=== PATIENT | male | born 1960 | race Caucasian/White ===

== ENCOUNTER 2017-05-15 06:36 | Inpatient (IN) | payer SELFPAY ==
[2017-05-15 06:59] LABS: ADD MAN DIFF? NO
[2017-05-15] MEDS: IPRATRPIUM/ALBUTEROL 0.5/2.5MG 3 ML NEBU. NEB ×4 (07:04→20:10)
[2017-05-15] MEDS: ALBUTEROL SULFATE 2.5 MG/3 ML NEBU. CONT NEB (07:04)
[2017-05-15 07:08] LABS: BASE EXCESS COOX -2 mmol/L (-3-3); BASO % 0 % (0-3); CARBON MONOXIDE 1.1 % (0.0-1.9); EOS # 0.1 x10^3/uL (0.0-0.7); EOS % 1 % (0-3); HCO3 COOX 23 mmol/L (21-28); HEMATOCRIT 47.3 % (39.0-53.0); HEMOGLOBIN 15.8 g/dL (13.0-17.5); LYMPH # 3.2 x10^3/uL (1.0-4.8); LYMPH % 29 % (24-48); MEAN CORPUSCULAR HEMOGLOBIN 31 pg (25-35); MEAN CORPUSCULAR HGB CONC 34 g/dL (31-37); MEAN CORPUSCULAR VOLUME 93 fL (79-100); METHEMOGLOBIN 0.5 % (0.0-1.9); MONO # 0.8 x10^3/uL (0.0-1.1); MONO % 8 % (0-9); NEUT # 7.1 x10^3uL (1.8-7.7); NEUT % 62 % (31-73); OXYHEMOGLOBIN 90.3 %; PCO2 COOX 39 mmHg (35-46); PH COOX 7.38 (7.35-7.45); PLATELET COUNT 332 x10^3/uL (140-400); PO2 COOX 63 mmHg (75-108); RED BLOOD COUNT 5.06 x10^6/uL (4.30-5.70); RED CELL DISTRIBUTION WIDTH 12.5 % (11.5-14.5); SAT O2 COOX 92 % (92-99); TOTAL HEMOGLOBIN 16.4 g/dL; WHITE BLOOD COUNT 11.3 x10^3/uL (4.0-11.0)
[2017-05-15 07:17] LABS: ANION GAP 12 (6-14); CALCIUM 9.3 mg/dL (8.5-10.1); CARBON DIOXIDE 23 mmol/L (21-32); CHLORIDE 105 mmol/L (98-107); CREATININE 0.7 mg/dL (0.7-1.3); GFR 116.2; GLUCOSE 148 mg/dL (70-99); POTASSIUM 3.9 mmol/L (3.5-5.1); SODIUM 140 mmol/L (136-145)
[2017-05-15 07:19] LABS: ETHANOL < 10 mg/dL (0-10)
[2017-05-15 07:19] LABS: BLOOD UREA NITROGEN 13 mg/dL (8-26)
[2017-05-15 07:23] LABS: ALBUMIN 3.5 g/dL (3.4-5.0); ALK PHOS 115 U/L (46-116); ALT (SGPT) 35 U/L (16-63); AST (SGOT) 26 U/L (15-37); DIRECT BILIRUBIN 0.1 mg/dL (0.0-0.2); LIPASE 95 U/L (73-393); MAGNESIUM 2.3 mg/dL (1.8-2.4); TOTAL BILIRUBIN 0.3 mg/dL (0.2-1.0); TOTAL PROTEIN 7.8 g/dL (6.4-8.2)
[2017-05-15 07:27] LABS: INFLUENZA A PATIENT NEGATIVE (NEGATIVE); INFLUENZA B PATIENT NEGATIVE (NEGATIVE); OBC FLU VALID
[2017-05-15] MEDS ORDERED: CONTRAST GIVEN MC (07:30)
[2017-05-15 07:31] LABS: AMMONIA 19 mcmol/L (11-34); TROPONINI < 0.017 ng/mL (0.000-0.055)
[2017-05-15 07:32] LABS: NT-PRO BNP 97 pg/mL (0-124); THYROID STIM HORMONE (TSH) 2.435 uIU/mL (0.358-3.74)
[2017-05-15 07:35] LABS: D-DIMER 5.06 ug/mlFEU (0.00-0.50)
[2017-05-15] MEDS ORDERED: HALOPERIDOL LACTATE 5 MG/ML VIAL. (07:36)
[2017-05-15] MEDS: HALOPERIDOL LACTATE 5 MG/ML VIAL. IVP ×2 (07:41→08:05)
[2017-05-15 07:42] LABS: LACTIC ACID 4.8 mmol/L (0.4-2.0)
[2017-05-15] MEDS: IV NORMAL SALINE 1000ML BAG 1,000 ML IV ×4 (07:42→23:42)
[2017-05-15] MEDS: methylPREDNISolone SOD SUCC PF 125 MG/2 ML VIAL. IV (07:42)
[2017-05-15] MEDS: 0.9 % SODIUM CHLORIDE 10 ML DISP.SYRIN. IV (07:43)
[2017-05-15] MEDS ORDERED: ACETAMINOPHEN 325 MG TABLET. PO (07:45)
[2017-05-15] MEDS ORDERED: ONDANSETRON PF 4 MG/2 ML VIAL. IV ×2 (07:45→09:00)
[2017-05-15] MEDS ORDERED: diphenhydrAMINE 50 MG/ML VIAL IVP (07:45)
[2017-05-15] MEDS: MULTIVIT INFUSN,ADULT 4,VIT K 10 ML, THIAMINE 100 MG, FOLIC ACID 1 MG in IV NORMAL SALI... IV (07:53)
[2017-05-15] MEDS: CIPROFLOXACIN 400MG PREMIX 200 ML IV (07:59)
[2017-05-15] MEDS ORDERED: IPRATRPIUM/ALBUTEROL 0.5/2.5MG 3 ML NEBU. NEB (08:00)
[2017-05-15] MEDS ORDERED: MORPHINE SULFATE 2 MG/ML DISP.SYRIN. IV (09:00)
[2017-05-15] MEDS ORDERED: ALBUTEROL SULFATE 2.5 MG/3 ML NEBU. NEB (09:00)
[2017-05-15] MEDS ORDERED: traMADol 50 MG TABLET PO (09:00)
[2017-05-15] MEDS: ETOMIDATE 20 MG/10 ML VIAL. IV (09:16)
[2017-05-15] MEDS: SUCCINYLCHOLINE 200 MG/10 ML VIAL. IV (09:16)
[2017-05-15] MEDS ORDERED: PROPOFOL 50 ML IV ×2 (09:18→09:54)
[2017-05-15] MEDS: PROPOFOL 100 ML IV ×4 (09:22→23:08)
[2017-05-15] MEDS: IOHEXOL 300 MG/ML 100ML VIAL. IV (10:03)
[2017-05-15 11:18] LABS: LACTIC ACID 1.7 mmol/L (0.4-2.0)
[2017-05-15 11:27] LABS: TROPONINI 0.191 ng/mL (0.000-0.055)
[2017-05-15] MEDS: POTASSIUM CL 20MEQ D5-0.9%NACL 1,000 ML IV (11:47)
[2017-05-15 14:10] LABS: TROPONINI 0.293 ng/mL (0.000-0.055)
[2017-05-15 14:24] LABS: CKMB MASS 3.2 ng/mL (0.0-3.6); CREATINE KINASE 107 U/L (39-308)
[2017-05-15 16:01] LABS: BARBITURATES NEG (NEG); BENZODIAZEPINES NEG (NEG); CANNABINOIDS NEG (NEG); COCAINE NEG (NEG); METHADONE NEG (NEG); OPIATES NEG (NEG); PHENCYCLIDINE NEG (NEG)
[2017-05-15 16:03] LABS: AMPHETAMINE/METHAMPHETAMINE NEG (NEG); ETHANOL, URINE NEG (NEG)
[2017-05-15] MEDS: GADOBUTROL 7.5 MMOL/7.5 ML VIAL IV (16:30)
[2017-05-15] MEDS: ENOXAPARIN 40 MG/0.4 ML SYRINGE. SQ (17:10)
[2017-05-15] MEDS: ASPIRIN 300 MG SUPP.RECT PR (17:10)
[2017-05-15 19:14] LABS: MRSA BY PCR Negative (Negative)
[2017-05-15] MEDS: FAMOTIDINE 20 MG/2 ML VIAL IVP (20:41)
[2017-05-15] MEDS ORDERED: CIPROFLOXACIN 400MG PREMIX 200 ML IV (21:00)
[2017-05-16] MEDS: POTASSIUM CL 20MEQ D5-0.9%NACL 1,000 ML IV ×2 (03:03→13:40)
[2017-05-16] MEDS: PROPOFOL 100 ML IV ×3 (03:13→21:04)
[2017-05-16 06:22] LABS: ADD MAN DIFF? NO
[2017-05-16 06:31] LABS: BASO # 0.1 x10^3/uL (0.0-0.2); BASO % 1 % (0-3); EOS % 0 % (0-3); HEMATOCRIT 40.8 % (39.0-53.0); HEMOGLOBIN 13.7 g/dL (13.0-17.5); LYMPH # 2.8 x10^3/uL (1.0-4.8); LYMPH % 21 % (24-48); MEAN CORPUSCULAR HEMOGLOBIN 31 pg (25-35); MEAN CORPUSCULAR HGB CONC 34 g/dL (31-37); MEAN CORPUSCULAR VOLUME 92 fL (79-100); MONO # 1.6 x10^3/uL (0.0-1.1); MONO % 12 % (0-9); NEUT # 8.8 x10^3uL (1.8-7.7); NEUT % 66 % (31-73); PLATELET COUNT 314 x10^3/uL (140-400); RED BLOOD COUNT 4.47 x10^6/uL (4.30-5.70); RED CELL DISTRIBUTION WIDTH 12.9 % (11.5-14.5); WHITE BLOOD COUNT 13.4 x10^3/uL (4.0-11.0)
[2017-05-16 06:42] LABS: ANION GAP 8 (6-14); CARBON DIOXIDE 25 mmol/L (21-32); CHLORIDE 112 mmol/L (98-107); CREATININE 0.5 mg/dL (0.7-1.3); GFR 171.4; GLUCOSE 119 mg/dL (70-99); POTASSIUM 3.5 mmol/L (3.5-5.1); SODIUM 145 mmol/L (136-145)
[2017-05-16 06:43] LABS: BLOOD UREA NITROGEN 7 mg/dL (8-26)
[2017-05-16 06:47] LABS: CHOLESTEROL 193 mg/dL (0-200); HDLC 28 mg/dL (40-60); LDLC 125 mg/dL (0-100); NON-HDL CHOLESTEROL 165 mg/dL (0-129); TRIGLYCERIDES 199 mg/dL (0-150); VLDLC 40 mg/dL (0-40)
[2017-05-16 06:49] LABS: CHOLESTEROL/HDL RATIO 6.9
[2017-05-16] MEDS: ASPIRIN CHEWABLE 81 MG TABLET. PO (08:00)
[2017-05-16] MEDS: IPRATRPIUM/ALBUTEROL 0.5/2.5MG 3 ML NEBU. NEB ×4 (08:19→19:21)
[2017-05-16 08:27] LABS: BASE EXCESS ABG -2 mmol/L (-3-3); HCO3 ABG 21 mmol/L (21-28); PCO2 ABG 32 mmHg (35-46); PH ABG 7.44 (7.35-7.45); PO2 ABG 88 mmHg (75-108); SAT O2 ABG 97 % (92-99)
[2017-05-16 08:52] LABS: FIO2 ABG 40
[2017-05-16] MEDS: MULTIVIT INFUSN,ADULT 4,VIT K 10 ML, THIAMINE 100 MG, FOLIC ACID 1 MG in IV DEXTROSE 5 ... IV (09:48)
[2017-05-16 09:50] LABS: TROPONINI 0.136 ng/mL (0.000-0.055)
[2017-05-16 12:51] LABS: BASE EXCESS ABG -2 mmol/L (-3-3); HCO3 ABG 22 mmol/L (21-28); PCO2 ABG 36 mmHg (35-46); PH ABG 7.41 (7.35-7.45); PO2 ABG 74 mmHg (75-108); SAT O2 ABG 96 % (92-99)
[2017-05-16 12:53] LABS: FIO2 ABG 40
[2017-05-16] MEDS: ENOXAPARIN 40 MG/0.4 ML SYRINGE. SQ (16:00)
[2017-05-16] MEDS: FAMOTIDINE 20 MG/2 ML VIAL IVP (21:04)
[2017-05-16] MEDS ORDERED: MIDAZOLAM 100MG/100ML PREMIX 100 ML IV (22:15)
[2017-05-17] MEDS: PROPOFOL 100 ML IV ×5 (01:18→22:57)
[2017-05-17] MEDS: POTASSIUM CL 20MEQ D5-0.9%NACL 1,000 ML IV ×2 (01:19→17:44)
[2017-05-17 06:17] LABS: ADD MAN DIFF? NO
[2017-05-17 06:25] LABS: BASO % 0 % (0-3); EOS # 0.1 x10^3/uL (0.0-0.7); EOS % 1 % (0-3); HEMATOCRIT 40.7 % (39.0-53.0); HEMOGLOBIN 13.3 g/dL (13.0-17.5); LYMPH # 3.1 x10^3/uL (1.0-4.8); LYMPH % 33 % (24-48); MEAN CORPUSCULAR HEMOGLOBIN 31 pg (25-35); MEAN CORPUSCULAR HGB CONC 33 g/dL (31-37); MEAN CORPUSCULAR VOLUME 95 fL (79-100); MONO # 1.3 x10^3/uL (0.0-1.1); MONO % 13 % (0-9); NEUT # 4.9 x10^3uL (1.8-7.7); NEUT % 52 % (31-73); PLATELET COUNT 336 x10^3/uL (140-400); RED BLOOD COUNT 4.31 x10^6/uL (4.30-5.70); WHITE BLOOD COUNT 9.4 x10^3/uL (4.0-11.0)
[2017-05-17 06:35] LABS: ANION GAP 7 (6-14); BLOOD UREA NITROGEN 7 mg/dL (8-26); CALCIUM 7.8 mg/dL (8.5-10.1); CARBON DIOXIDE 27 mmol/L (21-32); CHLORIDE 109 mmol/L (98-107); CREATININE 0.4 mg/dL (0.7-1.3); GFR 221.7; GLUCOSE 110 mg/dL (70-99); POTASSIUM 3.8 mmol/L (3.5-5.1); SODIUM 143 mmol/L (136-145)
[2017-05-17] MEDS: IPRATRPIUM/ALBUTEROL 0.5/2.5MG 3 ML NEBU. NEB ×4 (07:37→20:26)
[2017-05-17 08:43] LABS: BASE EXCESS ABG -1 mmol/L (-3-3); HCO3 ABG 25 mmol/L (21-28); PCO2 ABG 45 mmHg (35-46); PH ABG 7.36 (7.35-7.45); PO2 ABG 72 mmHg (75-108); SAT O2 ABG 95 % (92-99)
[2017-05-17 08:45] LABS: FIO2 ABG 40
[2017-05-17] MEDS: ASPIRIN CHEWABLE 81 MG TABLET. PO (09:39)
[2017-05-17] MEDS: MULTIVIT INFUSN,ADULT 4,VIT K 10 ML, THIAMINE 100 MG, FOLIC ACID 1 MG in IV DEXTROSE 5 ... IV (09:57)
[2017-05-17] MEDS: ENOXAPARIN 40 MG/0.4 ML SYRINGE. SQ (16:20)
[2017-05-17] MEDS: FAMOTIDINE 20 MG/2 ML VIAL IVP (21:02)
[2017-05-18] MEDS: PROPOFOL 100 ML IV ×3 (05:05→21:13)
[2017-05-18 05:52] LABS: ADD MAN DIFF? NO
[2017-05-18 05:57] LABS: BASO % 0 % (0-3); EOS # 0.2 x10^3/uL (0.0-0.7); EOS % 2 % (0-3); HEMATOCRIT 41.4 % (39.0-53.0); LYMPH # 2.7 x10^3/uL (1.0-4.8); LYMPH % 28 % (24-48); MEAN CORPUSCULAR HEMOGLOBIN 32 pg (25-35); MEAN CORPUSCULAR HGB CONC 34 g/dL (31-37); MEAN CORPUSCULAR VOLUME 93 fL (79-100); MONO # 1.1 x10^3/uL (0.0-1.1); MONO % 12 % (0-9); NEUT # 5.7 x10^3uL (1.8-7.7); NEUT % 58 % (31-73); PLATELET COUNT 359 x10^3/uL (140-400); RED BLOOD COUNT 4.43 x10^6/uL (4.30-5.70); RED CELL DISTRIBUTION WIDTH 12.7 % (11.5-14.5); WHITE BLOOD COUNT 9.7 x10^3/uL (4.0-11.0)
[2017-05-18 06:30] LABS: ANION GAP 6 (6-14); BLOOD UREA NITROGEN 9 mg/dL (8-26); CALCIUM 8.3 mg/dL (8.5-10.1); CARBON DIOXIDE 27 mmol/L (21-32); CHLORIDE 108 mmol/L (98-107); CREATININE 0.4 mg/dL (0.7-1.3); GFR 221.7; GLUCOSE 121 mg/dL (70-99); SODIUM 141 mmol/L (136-145)
[2017-05-18] MEDS: IPRATRPIUM/ALBUTEROL 0.5/2.5MG 3 ML NEBU. NEB ×4 (07:49→20:39)
[2017-05-18] MEDS: ASPIRIN CHEWABLE 81 MG TABLET. PO (07:59)
[2017-05-18 08:31] LABS: BASE EXCESS ABG 2 mmol/L (-3-3); HCO3 ABG 27 mmol/L (21-28); PCO2 ABG 44 mmHg (35-46); PH ABG 7.41 (7.35-7.45); PO2 ABG 83 mmHg (75-108); SAT O2 ABG 97 % (92-99)
[2017-05-18] MEDS: MULTIVIT INFUSN,ADULT 4,VIT K 10 ML, THIAMINE 100 MG, FOLIC ACID 1 MG in IV DEXTROSE 5 ... IV (08:32)
[2017-05-18 08:33] LABS: FIO2 ABG 40
[2017-05-18] MEDS: FUROSEMIDE 20 MG/2 ML VIAL. IVP (10:11)
[2017-05-18] MEDS: ENOXAPARIN 40 MG/0.4 ML SYRINGE. SQ (15:47)
[2017-05-18] MEDS: FAMOTIDINE 20 MG/2 ML VIAL IVP (21:13)
[2017-05-19] MEDS: PROPOFOL 100 ML IV ×3 (00:50→10:00)
[2017-05-19 03:41] LABS: ADD MAN DIFF? NO
[2017-05-19 03:43] LABS: BASO % 1 % (0-3); EOS # 0.3 x10^3/uL (0.0-0.7); EOS % 3 % (0-3); HEMATOCRIT 41.2 % (39.0-53.0); HEMOGLOBIN 13.9 g/dL (13.0-17.5); LYMPH # 2.4 x10^3/uL (1.0-4.8); LYMPH % 27 % (24-48); MEAN CORPUSCULAR HEMOGLOBIN 31 pg (25-35); MEAN CORPUSCULAR HGB CONC 34 g/dL (31-37); MEAN CORPUSCULAR VOLUME 93 fL (79-100); MONO % 11 % (0-9); NEUT % 58 % (31-73); PLATELET COUNT 365 x10^3/uL (140-400); RED BLOOD COUNT 4.42 x10^6/uL (4.30-5.70); RED CELL DISTRIBUTION WIDTH 12.9 % (11.5-14.5); WHITE BLOOD COUNT 8.7 x10^3/uL (4.0-11.0)
[2017-05-19 04:24] LABS: ANION GAP 6 (6-14); BLOOD UREA NITROGEN 15 mg/dL (8-26); CALCIUM 8.8 mg/dL (8.5-10.1); CARBON DIOXIDE 30 mmol/L (21-32); CHLORIDE 103 mmol/L (98-107); CREATININE 0.5 mg/dL (0.7-1.3); GFR 171.4; GLUCOSE 125 mg/dL (70-99); POTASSIUM 4.1 mmol/L (3.5-5.1); SODIUM 139 mmol/L (136-145)
[2017-05-19] MEDS: DOCUSATE SODIUM 100 MG CAPSULE. PO (07:55)
[2017-05-19] MEDS: FAMOTIDINE 20 MG/2 ML VIAL IVP (07:55)
[2017-05-19] MEDS: ASPIRIN CHEWABLE 81 MG TABLET. PO (07:55)
[2017-05-19] MEDS: ACETAMINOPHEN 325 MG TABLET. PO (07:56)
[2017-05-19] MEDS: IPRATRPIUM/ALBUTEROL 0.5/2.5MG 3 ML NEBU. NEB ×4 (08:21→19:49)
[2017-05-19] MEDS: DOCUSATE 100 MG/10 ML SOLUTION. PO (08:47)
[2017-05-19] MEDS: guaiFENesin ORAL 200 MG/10 ML LIQUID. PO ×3 (08:49→18:00)
[2017-05-19 08:50] LABS: BASE EXCESS ABG 5 mmol/L (-3-3); HCO3 ABG 31 mmol/L (21-28); PCO2 ABG 54 mmHg (35-46); PH ABG 7.38 (7.35-7.45); PO2 ABG 82 mmHg (75-108); SAT O2 ABG 96 % (92-99)
[2017-05-19 08:52] LABS: FIO2 ABG 40
[2017-05-19] MEDS: MULTIVIT INFUSN,ADULT 4,VIT K 10 ML, THIAMINE 100 MG, FOLIC ACID 1 MG in IV DEXTROSE 5 ... IV (09:58)
[2017-05-19 12:27] LABS: BASE EXCESS ABG 5 mmol/L (-3-3); HCO3 ABG 30 mmol/L (21-28); PCO2 ABG 45 mmHg (35-46); PH ABG 7.44 (7.35-7.45); PO2 ABG 79 mmHg (75-108); SAT O2 ABG 96 % (92-99)
[2017-05-19 12:29] LABS: FIO2 ABG 40
[2017-05-19] MEDS ORDERED: LORazepam 1 MG TABLET PO (16:00)
[2017-05-19] MEDS: HALOPERIDOL LACTATE 5 MG/ML VIAL. IVP (16:10)
[2017-05-19] MEDS: ENOXAPARIN 40 MG/0.4 ML SYRINGE. SQ (16:18)
[2017-05-19] MEDS: hydrALAZINE 20 MG/ML VIAL. IVP (16:19)
[2017-05-19] MEDS: POTASSIUM CL 20MEQ D5-0.45NACL 1,000 ML IV (20:04)
[2017-05-20 05:03] LABS: ADD MAN DIFF? NO
[2017-05-20] MEDS: hydrALAZINE 20 MG/ML VIAL. IVP ×2 (05:05→19:12)
[2017-05-20 05:14] LABS: BASO % 0 % (0-3); EOS # 0.3 x10^3/uL (0.0-0.7); EOS % 4 % (0-3); HEMATOCRIT 41.4 % (39.0-53.0); HEMOGLOBIN 13.9 g/dL (13.0-17.5); LYMPH # 2.3 x10^3/uL (1.0-4.8); LYMPH % 31 % (24-48); MEAN CORPUSCULAR HEMOGLOBIN 31 pg (25-35); MEAN CORPUSCULAR HGB CONC 34 g/dL (31-37); MEAN CORPUSCULAR VOLUME 93 fL (79-100); MONO # 0.9 x10^3/uL (0.0-1.1); MONO % 12 % (0-9); NEUT # 4.1 x10^3uL (1.8-7.7); NEUT % 53 % (31-73); PLATELET COUNT 400 x10^3/uL (140-400); RED BLOOD COUNT 4.47 x10^6/uL (4.30-5.70); RED CELL DISTRIBUTION WIDTH 12.8 % (11.5-14.5); WHITE BLOOD COUNT 7.7 x10^3/uL (4.0-11.0)
[2017-05-20 05:39] LABS: ANION GAP 6 (6-14); BLOOD UREA NITROGEN 12 mg/dL (8-26); CARBON DIOXIDE 28 mmol/L (21-32); CHLORIDE 105 mmol/L (98-107); CREATININE 0.4 mg/dL (0.7-1.3); GFR 221.7; GLUCOSE 119 mg/dL (70-99); SODIUM 139 mmol/L (136-145)
[2017-05-20] MEDS: guaiFENesin ORAL 200 MG/10 ML LIQUID. PO ×4 (05:58→18:00)
[2017-05-20] MEDS: POTASSIUM CL 20MEQ D5-0.45NACL 1,000 ML IV ×3 (06:27→19:58)
[2017-05-20] MEDS: IPRATRPIUM/ALBUTEROL 0.5/2.5MG 3 ML NEBU. NEB ×4 (08:00→19:30)
[2017-05-20] MEDS: ASPIRIN CHEWABLE 81 MG TABLET. PO (08:24)
[2017-05-20] MEDS: MULTIVIT INFUSN,ADULT 4,VIT K 10 ML, THIAMINE 100 MG, FOLIC ACID 1 MG in IV DEXTROSE 5 ... IV (09:10)
[2017-05-20] MEDS: HALOPERIDOL LACTATE 5 MG/ML VIAL. IVP (16:21)
[2017-05-20] MEDS: ENOXAPARIN 40 MG/0.4 ML SYRINGE. SQ (17:07)
[2017-05-20] MEDS: LACTOBACILLUS RHAMNOSUS GG 1 CAPSULE. PO (21:00)
[2017-05-20] MEDS: FAMOTIDINE 20 MG/2 ML VIAL IVP (21:42)
[2017-05-21 03:47] LABS: ADD MAN DIFF? NO
[2017-05-21 03:53] LABS: BASO # 0.1 x10^3/uL (0.0-0.2); BASO % 1 % (0-3); EOS # 0.2 x10^3/uL (0.0-0.7); EOS % 3 % (0-3); HEMATOCRIT 43.1 % (39.0-53.0); HEMOGLOBIN 14.6 g/dL (13.0-17.5); LYMPH # 2.5 x10^3/uL (1.0-4.8); LYMPH % 29 % (24-48); MEAN CORPUSCULAR HEMOGLOBIN 32 pg (25-35); MEAN CORPUSCULAR HGB CONC 34 g/dL (31-37); MEAN CORPUSCULAR VOLUME 93 fL (79-100); MONO # 0.9 x10^3/uL (0.0-1.1); MONO % 11 % (0-9); NEUT # 5.1 x10^3uL (1.8-7.7); NEUT % 58 % (31-73); PLATELET COUNT 425 x10^3/uL (140-400); RED BLOOD COUNT 4.65 x10^6/uL (4.30-5.70); RED CELL DISTRIBUTION WIDTH 13.1 % (11.5-14.5); WHITE BLOOD COUNT 8.8 x10^3/uL (4.0-11.0)
[2017-05-21 04:12] LABS: ALBUMIN 2.9 g/dL (3.4-5.0); ALBUMIN/GLOBULIN RATIO 0.7 (1.0-1.7); ALK PHOS 136 U/L (46-116); ALT (SGPT) 32 U/L (16-63); ANION GAP 9 (6-14); AST (SGOT) 22 U/L (15-37); BLOOD UREA NITROGEN 14 mg/dL (8-26); BUN/CREATININE RATIO 28 (6-20); CALCIUM 9.1 mg/dL (8.5-10.1); CARBON DIOXIDE 25 mmol/L (21-32); CHLORIDE 105 mmol/L (98-107); CREATININE 0.5 mg/dL (0.7-1.3); GFR 171.4; GLUCOSE 121 mg/dL (70-99); MAGNESIUM 2.3 mg/dL (1.8-2.4); POTASSIUM 3.9 mmol/L (3.5-5.1); SODIUM 139 mmol/L (136-145); TOTAL BILIRUBIN 0.5 mg/dL (0.2-1.0); TOTAL PROTEIN 7.1 g/dL (6.4-8.2)
[2017-05-21] MEDS: guaiFENesin ORAL 200 MG/10 ML LIQUID. PO ×4 (04:21→17:57)
[2017-05-21] MEDS: POTASSIUM CL 20MEQ D5-0.45NACL 1,000 ML IV ×2 (04:22→11:58)
[2017-05-21] MEDS: IPRATRPIUM/ALBUTEROL 0.5/2.5MG 3 ML NEBU. NEB ×4 (07:44→19:47)
[2017-05-21] MEDS: MULTIVIT INFUSN,ADULT 4,VIT K 10 ML, THIAMINE 100 MG, FOLIC ACID 1 MG in IV DEXTROSE 5 ... IV (08:38)
[2017-05-21] MEDS: LACTOBACILLUS RHAMNOSUS GG 1 CAPSULE. PO ×2 (09:11→20:34)
[2017-05-21] MEDS: ASPIRIN CHEWABLE 81 MG TABLET. PO (09:11)
[2017-05-21] MEDS ORDERED: NICOTINE 21MG PATCH. TD (14:30)
[2017-05-21] MEDS: ENOXAPARIN 40 MG/0.4 ML SYRINGE. SQ (17:57)
[2017-05-21] MEDS: levETIRAcetam 500 MG TABLET PO (20:34)
[2017-05-21] MEDS: FAMOTIDINE 20 MG TABLET. PO (20:34)
[2017-05-22] MEDS: guaiFENesin ORAL 200 MG/10 ML LIQUID. PO ×3 (05:26→11:27)
[2017-05-22] MEDS: LACTOBACILLUS RHAMNOSUS GG 1 CAPSULE. PO (08:12)
[2017-05-22] MEDS: THIAMINE 100 MG TABLET. PO (08:12)
[2017-05-22] MEDS: levETIRAcetam 500 MG TABLET PO (08:12)
[2017-05-22] MEDS: FOLIC ACID 1 MG TABLET. PO (08:12)
[2017-05-22] MEDS: MULTIVITAMIN with MINERAL TABLET. PO (08:12)
[2017-05-22] MEDS: ASPIRIN CHEWABLE 81 MG TABLET. PO (08:12)
[2017-05-22] MEDS: IPRATRPIUM/ALBUTEROL 0.5/2.5MG 3 ML NEBU. NEB ×2 (08:49→12:00)
[2017-05-22] MEDS ORDERED: INFLUENZA VAX SCREEN BY RX. MC (09:15)
[2017-05-22] MEDS: chlordiazePOXIDE HCL 25 MG CAPSULE PO (10:00)
[2017-05-22] MEDS: FLU VACC QS2017-18 (36MOS+)/PF 0.5 ML SYRINGE. VAX IM (11:29)
== END 2017-05-22 14:15 | disposition home health service (06) | DRG 207 ==
LOC: 6 SOUTH 05-21 03:30 → ER 06:36 → 1 WEST ICU 08:35
PROC: 5A1955Z Respiratory Ventilation, Greater than 96 Consecutive Hours (ICD-10-PCS; principal; 2017-05-15)
PROC: 0BH17EZ Insertion of Endotracheal Airway into Trachea, Via Natural or Artificial Opening (ICD-10-PCS; 2017-05-15)
PROC: 5A09357 Assistance with Respiratory Ventilation, Less than 24 Consecutive Hours, Continuous Positive Airway Pressure (ICD-10-PCS; 2017-05-19)
DX: J96.01 Acute respiratory failure with hypoxia (principal); G92 Toxic encephalopathy; E87.2 Acidosis; G93.89 Other specified disorders of brain; R13.10 Dysphagia, unspecified; F10.239 Alcohol dependence with withdrawal, unspecified; J44.1 Chronic obstructive pulmonary disease with (acute) exacerbation; D72.829 Elevated white blood cell count, unspecified; E78.5 Hyperlipidemia, unspecified; F17.210 Nicotine dependence, cigarettes, uncomplicated; F79 Unspecified intellectual disabilities; I10 Essential (primary) hypertension; Z82.49 Family history of ischemic heart disease and other diseases of the circulatory system; Z86.61 Personal history of infections of the central nervous system; Z86.73 Personal history of transient ischemic attack (TIA), and cerebral infarction without residual deficits; Z91.81 History of falling; Z87.828 Personal history of other (healed) physical injury and trauma
CPT/HCPCS: 31500; 36415; 36600; 70450; 70553; 71045; 71275; 74018; 80048; 80053; 80061; 80076; 80307; 82140; 82553; 82805; 83605; 83690; 83735; 83880; 84443; 84484; 85025; 85379; 87040; 87641; 87804; 87804-59; 90686; 92526-GN; 92610-GN; 93005; 93306; 94002; 94003; 94640; 94644; 94660; 95816; 96361; 96365; 96368; 96375; 96376; 97116-GP; 97162-GP; 97166-GO; 97530-GO; 97530-GP; 97535-GO; 99291-25; A9585; G0480; J0330; J0360; J0744; J1630; J1650; J1953; J1956; J2060; J2704; J2930; J3010; J7030; J7613; J7620; Q9967; S0028

== ENCOUNTER → 2020-05-22 | Outpatient (CLI) | payer OTHER ==
[2017-05-22 11:00] VITALS: BP 155/85
[~2020-05-22] MED LIST: LEVE500T56 PO; LEVO500T59 PO
--- NOTE | 2020-05-22 14:14 | RAD ---
Exam performed: 2 views of the chest. Indication: Reason: COPD. DISABILITY DETERMINATION / Spl. Instructions: / History: Date of Service: 05/22/2020 12:47 PM. Comparison : One view chest from 05/18/2017 and priors Findings: PA and lateral radiographs of the chest reveal a normal cardiomediastinal contour. Pulmonary vascular ity is unremarkable. The lungs are somewhat hyperinflated, however clear. There are mildly prominent interstitial markings in both lungs probably chronic. There is a nodule in the left midlung. It is no t clear if this was previously present. No pleural fluid is seen. The visualized osseous structures are unremarkable. Impression: Apparently new nodule in the left midlung probably in the apical segment left lower lobe. Evaluation with CT chest may be obtained to further evaluate this nodule. Electronically signed by: Herlinda Mora MD (05/22/2020 2:12 PM) [id number]
== END ==
LOC: RAD 12:37
PROVIDERS: ATTEND Surgery
DX: J44.9 Chronic obstructive pulmonary disease, unspecified (principal)
CPT/HCPCS: 71046